=== PATIENT | female | born 1940 | race Hispanic/Latino ===

== ENCOUNTER → 2017-03-30 | Outpatient (CLI) | payer MEDICARE | END | disposition home or self-care (01) | LOC: RAH 13:36 | PROVIDERS: ATTEND Physician Assistant Medical | DX: J84.10 Pulmonary fibrosis, unspecified (principal); J18.9 Pneumonia, unspecified organism | CPT/HCPCS: 71046 ==

== ENCOUNTER → 2019-04-28 | Outpatient (CLI) | payer MEDICARE | END | disposition home or self-care (01) | LOC: RAH 11:57 | PROVIDERS: ATTEND Internal Medicine Critical Care Medicine | DX: Z01.89 Encounter for other specified special examinations (principal); M47.814 Spondylosis without myelopathy or radiculopathy, thoracic region | CPT/HCPCS: 71046 ==

== ENCOUNTER → 2022-03-04 | Outpatient (CLI) | payer MEDICARE | END | disposition home or self-care (01) | LOC: RAH 12:46 | PROVIDERS: ATTEND Internal Medicine Critical Care Medicine | DX: J84.10 Pulmonary fibrosis, unspecified (principal); R93.89 Abnormal findings on diagnostic imaging of other specified body structures; R06.02 Shortness of breath; J84.9 Interstitial pulmonary disease, unspecified; J47.9 Bronchiectasis, uncomplicated | CPT/HCPCS: 71250; 94060; 94727; 94729 ==